=== PATIENT | female | born 1995 | race Caucasian/White ===

== ENCOUNTER 2018-10-09 18:00 | Emergency (ER) | payer BC ==
[2018-10-09] MEDS ORDERED: Ondansetron ODT TAB* 4 MG PO ONE (18:30)
--- NOTE | 2018-10-09 18:35 | ED ---
Substance Abuse/Use - HPI Summary HPI Summary: The patient is a 22 y/o F brought in by ambulance to [facility] presenting with a chief complaint of 'not feeling too well' for the last hour. She was states she drank EtOH and denies any other substance use. Per EMS report, she had five shots of tequila and one marijuana brownie, which she had never had before. The pt has been nauseous with four episodes of vomiting, but she did not vomit in front of EMS. She does not take medication or have hx of disease or surgeries. - History Of Current Complaint Chief Complaint: EDSubstanceAbuse Stated Complaint: VOMITING Time Seen by Provider: 10/09/18 18:20 Hx Obtained From: Patient Onset/Duration of Drug/ETOH Abuse: Hours Ingestion History: Type/Name Of Drug - tequila, marijuana Timing Of Abuse: Binge Use Severity Initially: Moderate Severity Currently: Moderate Aggravating Factor(s): Nothing Alleviating Factor(s): Nothing Associated Signs And Symptoms: Nausea, Vomiting - Allergies/Home Medications Allergies/Adverse Reactions: Allergies Allergy/AdvReac Type Severity Reaction Status Date / Time No Known Allergies Allergy Verified 10/09/18 18:21 Home Medications: Home Medications NK [No Home Medications Reported] 10/09/18 [History Confirmed 10/09/18] PMH/Surg Hx/FS Hx/Imm Hx Endocrine/Hematology History: Denies: Hx Diabetes Respiratory History: Denies: Hx Asthma Sensory History: Denies: Hx Legally Blind, Hx Deafness Opthamlomology History: Denies: Hx Legally Blind EENT History: Denies: Hx Deafness - Surgical History Surgery Procedure, Year, and Place: none Infectious Disease History: No Infectious Disease History: Denies: Traveled Outside the [place] in Last 30 Days - Family History Known Family History: Negative: Diabetes - Social History Occupation: Student Lives: Dormitory/Roommates Alcohol Use: Weekly Review of Systems Positive: Other - EtOH intoxication (tequila) Positive: Vomiting, Nausea All Other Systems Reviewed And Are Negative: Yes Physical Exam - Summary Physical Exam Summary: Appearance: The patient is well-nourished in no acute distress and in no acute pain. Skin: The skin is warm and dry and skin color reflects adequate perfusion. HEENT: The head is normocephalic and atraumatic. The pupils are equal and reactive. The conjunctivae are clear and without drainage. Nares are patent and without drainage. Mouth reveals moist mucous membranes and the throat is without erythema and exudate. The external ears are intact. The ear canals are patent and without drainage. The tympanic membranes are intact. Neck: The neck is supple with full range of motion and non-tender. There are no carotid bruits. There is no neck vein distension. Respiratory: Chest is non-tender. Lungs are clear to auscultation and breath sounds are symmetrical and equal. Cardiovascular: Heart is regular rate and rhythm. There is no murmur or rub auscultated. There is no peripheral edema and pulses are symmetrical and equal. Abdomen: The abdomen is soft and non-tender. There are normal bowel sounds heard in all four quadrants and there is no organomegaly palpated. Musculoskeletal: There is no back tenderness noted. Extremities are non-tender with full range of motion. There is good capillary refill. There is no peripheral edema or calf tenderness elicited. Neurological: Patient is alert and oriented to person, place and time. The patient has symmetrical motor strength in all four extremities. Cranial nerves are grossly intact. Deep tendon reflexes are symmetrical and equal in all four extremities. Psychiatric: The patient has an appropriate affect and does not exhibit any anxiety or depression. Triage Information Reviewed: Yes Vital Signs On Initial Exam: Initial Vitals Temp Pulse Resp BP Pulse Ox 98 F 83 18 94/75 100 10/09/18 18:22 10/09/18 18:22 10/09/18 18:22 10/09/18 18:22 10/09/18 18:22 Vital Signs Reviewed: Yes Diagnostics - Vital Signs Vital Signs Temp Pulse Resp BP Pulse Ox 10/09/18 18:22 98 F 83 18 94/75 100 - Laboratory Lab Statement: Any lab studies that have been ordered have been reviewed, and results considered in the medical decision making process. Re-Evaluation - Re-Evaluation First Eval Re-Evaluation Time: 20:15 Change: Improved Comment: The patient is feeling better and wants to go home. Her friend will take her home. Course/Dx - Course Course Of Treatment: Ms. Berry got some Zofran ODT here in the department and rested. She felt much improved, had a sober ride here with her and was discharged in stable condition. She was clinically sober at that point - Diagnoses Provider Diagnoses: Alcohol intoxication Discharge - Sign-Out/Discharge Documenting (check all that apply): Patient Departure - Patient will be discharged home. - Discharge Plan Condition: Stable Disposition: HOME Patient Education Materials: Alcohol Intoxication (ED) Referrals: [facility] @ [Outside] - 3 Days Additional Instructions: Follow up with [facility] in 2-3 days. Return to the emergency department if any new or worsening symptoms occur. - Billing Disposition and Condition Condition: STABLE Disposition: Home - Attestation Statements Document Initiated by Scribe: Yes Documenting Scribe: Giulia Lew Provider For Whom Kaycee is Documenting (Include Credential): Dr. Ernesto Garcia MD Scribe Attestation: Giulia Price scribed for Dr. Ernesto Garcia MD on 10/09/18 at 2114. Scribe Documentation Reviewed: Yes Provider Attestation: The documentation as recorded by the Giulia tomlinson accurately reflects the service I personally performed and the decisions made by me, Dr. Ernesto Garcia MD
[2018-10-09 20:53] VITALS: BP 113/62
== END 2018-10-09 20:54 | disposition home or self-care (01) ==
LOC: ED 18:00
DX: F10.129 Alcohol abuse with intoxication, unspecified (principal)
CPT/HCPCS: 99282; A9270-GY